=== PATIENT | male | born 1970 | race Caucasian/White ===

== ENCOUNTER → 2018-08-25 | Outpatient (CLI) | payer BC ==
--- NOTE | 2018-08-25 14:36 | US ---
EXAMINATION TYPE: US scrotum with doppler. Grayscale and color Doppler Duplex imaging performed of t garry scrotum. DATE OF EXAM: 08/25/2018 COMPARISON: NONE CLINICAL HISTORY: N50.89 Testicular mass, R10.2 Inguinal pain. Lump left testicle for 2 weeks. Pain l eft groin EXAM MEASUREMENTS: TESTICLES: Right Testicle: 4.6 x 2.6 x 3.2 cm Left Testicle: 4.8 x 2.5 x 3.5 cm EPIDIDYMIS HEAD: Right Epididymis: 1.7 cm Left Epididymis: 1.3 cm Doppler performed to assess for testicular vascularity; good bilateral color flow and waveforms are s een. There is no evidence of testicular torsion. Presence of hydroceles: fluid collection medial to right testicle = 4.3cm Presence of varicoceles: prominent vascularity lateral to left testicle Complex area inferior to left testicle within area of lump = 1.4 x 1.0 x 0.8cm IMPRESSION: 1. There is a right-sided hydrocele. Small left varicocele. 2. There is a complex 1.4 cm area inferior to the left testicle corresponding to the palpable abnorma lity of indeterminate etiology possibly related to the tail the epididymis. Neoplastic process or inf ectious process in the differential diagnosis. Urology consultation recommended.
== END | disposition home or self-care (01) ==
LOC: RADUSWWP 13:53
PROVIDERS: ATTEND Family Medicine
DX: N43.3 Hydrocele, unspecified (principal); I86.1 Scrotal varices; N50.89 Other specified disorders of the male genital organs
CPT/HCPCS: 76870; 93975

== ENCOUNTER → 2018-10-03 | Outpatient (CLI) | payer BC ==
--- NOTE | 2018-10-03 11:30 | US ---
EXAMINATION TYPE: US scrotum with doppler. Grayscale and color Doppler Duplex imaging performed of t garry scrotum. DATE OF EXAM: 10/03/2018 COMPARISON: 08/25/2018 CLINICAL HISTORY: R93.4 LT SCROTAL MASS. EXAM MEASUREMENTS: TESTICLES: Right Testicle: 4.7 x 2.5 x 3.4 cm Left Testicle: 5.1 x 2.5 x 3.5 cm EPIDIDYMIS HEAD: Right Epididymis: 1.8 x 0.9 x 1.7 cm Left Epididymis: 1.3 x 1.4 x 1.7 cm Doppler performed to assess for testicular vascularity; good bilateral color flow and waveforms are s een. There is no evidence of testicular torsion. Presence of hydroceles: Presence of fluid bilaterally; fluid is medial to both right and left teste s Presence of varicoceles: The previously seen left varicocele is not redemonstrated. Complex area (1.4 x 1.6 x 1.8 cm) inferio-lateral to left testies. Vascularity does not engorge with valsalva. This may possibly represent heterogenous and enlarged epididymal tail. IMPRESSION: 1. As seen on the prior exam of 08/25/2018 remains a complex region measuring 1.4 x 1.6 x 1.8 cm infer ior to the left testes corresponding the palpable abnormality. This does not appear to represent acut e epididymitis as it is unchanged from the prior of 08/25/2018. Considerations are for chronic epididy mitis, epididymal mass, or extratesticular neoplasm. 2. Trace bilateral uncomplicated hydroceles.
== END | disposition home or self-care (01) ==
LOC: RADUSWWP 09:24
PROVIDERS: ATTEND Urology
DX: N43.3 Hydrocele, unspecified (principal); N50.89 Other specified disorders of the male genital organs
CPT/HCPCS: 76870; 93975